=== PATIENT | female | born 1945 | race Caucasian/White ===

== ENCOUNTER 2025-02-18 17:34 | Emergency (ER) | payer MEDICARE ==
[~2025-02-18] VITALS: Ht 162.6 cm; Wt 68.9 kg
[2025-02-18] MEDS: ACETAMINOPHEN 500 MG TAB PO ONE (20:54)
[2025-02-18 22:04] VITALS: BP 151/73; TEMP 97.3; O2SAT 97
== END 2025-02-18 22:49 | disposition home or self-care (01) ==
LOC: M ED 17:34
DX: M17.11 Unilateral primary osteoarthritis, right knee (principal); M85.871 Other specified disorders of bone density and structure, right ankle and foot; E78.5 Hyperlipidemia, unspecified; E03.9 Hypothyroidism, unspecified; F41.9 Anxiety disorder, unspecified; Z88.0 Allergy status to penicillin; Z88.2 Allergy status to sulfonamides; Z88.8 Allergy status to other drugs, medicaments and biological substances; Z91.010 Allergy to peanuts